=== PATIENT | female | born 1975 | race Caucasian/White ===

== ENCOUNTER 2016-12-27 18:05 | Emergency (ER) | payer OTHER ==
[~2016-12-27] VITALS: Ht 172.7 cm; Wt 91.6 kg
[~2016-12-27 18:05] MED LIST: CHLOROQUINE PH250 MG PO; FLOVENT DISKUS1 DIS1 IH; FOLGARD1 TABLET PO; HYDROCHLOROTHIA50 MG PO; LEVAQUIN500 MG PO; PERCOCET 2.51 TABLET PO; PREDNISONE2.5 MG PO; PRILOSEC20 MG PO; PROVENTIL,2.5 MG/3 M IH; SYNTHROID25 MCG PO; TIZANIDINE HCL2 MG PO; TOPAMAX25 MG PO; VENTOLIN HFA18 GM IH
[2016-12-27 18:48] LABS: HEMATOCRIT 34.4 % (36.0-46.0); MCH 24.8 PG (29.0-34.0); MCHC 31.7 G/DL (30.0-36.0); MCV 78.4 FL (83-99); MEAN PLAT.VOLUME 10.6 uM^3 (9.5-12.4); PLATELET COUNT 268 K/uL (156-360); RBC DIS.WIDTH-CV 13.4 % (11.8-14.6); RBC DIS.WIDTH-SD 38.6 % (39-53); RED BLOOD COUNT 4.39 M/uL (3.80-5.20); WHITE BLOOD COUNT 8.6 K/uL (4.1-10.2)
[2016-12-27 19:09] LABS: CHLORIDE 106 mEq/L (99-109); POTASSIUM 3.8 mEq/L (3.7-5.4); SODIUM 139 mEq/L (136-147)
[2016-12-27 19:10] LABS: GLUCOSE 104 mg/dL (70-99)
[2016-12-27 19:12] LABS: ANION GAP 10 MEQ/L (2-14)
[2016-12-27 19:14] LABS: GFR ESTIMATE (CALCULATED) > 59 mL/min/
[2016-12-27 19:15] LABS: UREA NITROGEN (BUN) 19 mg/dL (9-23)
[2016-12-27 20:41] LABS: D-DIMER ELISA 0.37 mg/L FEU (< 0.57)
[2016-12-27 20:59] LABS: TROP-I INTERPRETATION NEGATIVE; TROPONIN-I < 0.01 ng/mL (0.0-0.30)
[2016-12-27 23:16] VITALS: BP 121/81
== END 2016-12-27 23:18 | disposition home or self-care (01) ==
LOC: EME 18:05 → EXP 18:05
DX: R42 Dizziness and giddiness (principal); M79.662 Pain in left lower leg; R06.02 Shortness of breath; Z88.0 Allergy status to penicillin; E89.0 Postprocedural hypothyroidism; Z88.8 Allergy status to other drugs, medicaments and biological substances; Z88.1 Allergy status to other antibiotic agents; Z88.2 Allergy status to sulfonamides; J45.909 Unspecified asthma, uncomplicated
CPT/HCPCS: 71020; 80048; 84443; 84484; 85027; 85379; 93005; 93971; 99281; 99283; J7030